=== PATIENT | female | born 1945 | race Caucasian/White ===

== ENCOUNTER 2020-02-19 11:15 | Outpatient (CLI) | payer MEDICARE, OTHER, SELFPAY ==
--- NOTE | 2020-02-19 11:30 | MM_ITS ---
WS: [id number] BILATERAL DIGITAL SCREENING MAMMOGRAPHY WITH CAD CLINICAL INFORMATION: screening HISTORY: Screening mammogram. No current complaints. COMPARISON: TECHNIQUE: Bilateral CC and MLO views. FINDINGS: Scattered fibroglandular densities bilaterally. No suspicious focal mass, asymmetry, calcifications, or architectural distortion. No evidence of malignancy. Vascular calcification. MM/[id number] IMPRESSION: BI-RADS: 2-Benign FOLLOW UP: 1 Year Follow-up Recommend return to annual screening mammography.
== END 2020-02-19 11:16 | disposition home or self-care (01) ==
LOC: RADSHAW 11:21
PROVIDERS: PCP Internal Medicine; Visit Provider Obstetrics & Gynecology
DX: Z12.31 Encounter for screening mammogram for malignant neoplasm of breast (principal)
CPT/HCPCS: 77067

== ENCOUNTER → 2020-02-28 13:26 | Outpatient (BNVA) | payer MEDICARE, OTHER, SELFPAY | PROVIDERS: PCP Internal Medicine; Referring Provider Dermatology; Visit Provider Dermatology | DX: Z12.83 Encounter for screening for malignant neoplasm of skin (principal); H61.009 Unspecified perichondritis of external ear, unspecified ear; L82.0 Inflamed seborrheic keratosis; L81.7 Pigmented purpuric dermatosis; D18.01 Hemangioma of skin and subcutaneous tissue | CPT/HCPCS: 17000; 17003; 99203 ==

== ENCOUNTER 2021-04-15 11:28 | Outpatient (CLI) | payer MEDICARE, SELFPAY ==
--- NOTE | 2021-04-15 11:40 | MM_ITS ---
WS: [id number] BILATERAL DIGITAL SCREENING MAMMOGRAPHY WITH CAD CLINICAL INFORMATION: SCREENING HISTORY: Screening mammogram. No current complaints. COMPARISON: February 19, 2020, December 01, 2018, and TECHNIQUE: Bilateral CC and MLO views. FINDINGS: Scattered fibroglandular densities bilaterally. No suspicious focal mass, asymmetry, calcifications, or architectural distortion. No evidence of malignancy. Punctate and vascular calcifications. MM/[id number] IMPRESSION: BI-RADS: 2-Benign FOLLOW UP: 1 Year Follow-up Recommend return to annual screening mammography.
== END 2021-04-15 11:29 | disposition home or self-care (01) ==
PROVIDERS: PCP Internal Medicine; Visit Provider Internal Medicine
DX: Z12.31 Encounter for screening mammogram for malignant neoplasm of breast (principal)
CPT/HCPCS: 77067

== ENCOUNTER → 2021-06-01 14:07 | Outpatient (BNVA) | payer MEDICARE, SELFPAY | PROVIDERS: PCP Internal Medicine; Visit Provider Nurse Practitioner | DX: R39.9 Unspecified symptoms and signs involving the genitourinary system (principal) | CPT/HCPCS: 81000 ==

== ENCOUNTER → 2021-10-12 13:28 | Outpatient (BNVA) | payer MEDICARE, SELFPAY | PROVIDERS: PCP Internal Medicine; Visit Provider Podiatrist Foot & Ankle Surgery | DX: M76.72 Peroneal tendinitis, left leg (principal); M25.572 Pain in left ankle and joints of left foot; Z87.891 Personal history of nicotine dependence; Z46.89 Encounter for fitting and adjustment of other specified devices | CPT/HCPCS: 20550; 73610; 97760; 99204; J1100; J3301; J3490; L1902 ==

== ENCOUNTER 2021-10-12 15:06 | Outpatient (CLI) | payer MEDICARE, SELFPAY | END 2021-10-12 15:07 | disposition home or self-care (01) | LOC: SPT 15:07 | PROVIDERS: PCP Internal Medicine; Visit Provider Podiatrist Foot & Ankle Surgery | DX: Z46.89 Encounter for fitting and adjustment of other specified devices (principal); M76.72 Peroneal tendinitis, left leg | CPT/HCPCS: 20550; 97760; 99204; L1902 ==

== ENCOUNTER → 2021-11-25 10:49 | Outpatient (BNVA) | payer MEDICARE, SELFPAY | PROVIDERS: PCP Internal Medicine; Visit Provider Podiatrist Foot & Ankle Surgery | DX: M76.72 Peroneal tendinitis, left leg (principal) | CPT/HCPCS: 99213 ==

== ENCOUNTER → 2022-04-19 08:41 | Outpatient (BNVA) | payer MEDICARE, SELFPAY | PROVIDERS: PCP Internal Medicine; Visit Provider Otolaryngology | DX: H61.23 Impacted cerumen, bilateral (principal); H81.09 Meniere's disease, unspecified ear | CPT/HCPCS: 69210; 99213 ==

== ENCOUNTER 2022-04-20 10:02 | Outpatient (CLI) | payer MEDICARE, SELFPAY ==
--- NOTE | 2022-04-20 10:17 | MM_ITS ---
WS: [id number] BILATERAL 3D TOMOSYNTHESIS DIGITAL SCREENING MAMMOGRAPHY WITH CAD CLINICAL INFORMATION: SCREENING HISTORY: Screening mammogram. No current complaints. COMPARISON: 03/2021 And January 30, 2020 TECHNIQUE: Bilateral CC and MLO views. FINDINGS: The breasts are composed of heterogeneous fibroglandular density tissue, which can limit the detectio n of small underlying mass lesions. Stable dense parenchymal tissue upper outer LEFT breast. No suspi cious mass, asymmetry, calcifications, or architectural distortion. No evidence of malignancy. Puncta te and Vascular calcification MM/[id number] IMPRESSION: BI-RADS: 2-Benign FOLLOW UP: 1 Year Follow-up Recommend return to annual screening mammography.
== END 2022-04-20 10:03 | disposition home or self-care (01) ==
LOC: RAD 10:06
PROVIDERS: PCP Internal Medicine; Visit Provider Obstetrics & Gynecology
DX: Z12.31 Encounter for screening mammogram for malignant neoplasm of breast (principal)
CPT/HCPCS: 77063; 77067

== ENCOUNTER 2022-06-07 08:24 | Emergency (ER) | payer MEDICARE, SELFPAY ==
[2022-06-07 08:31] VITALS: BP 163/94; PULSE 84; RESP 16; TEMP 36.7; O2SAT 94; BMI 30.2
--- NOTE | 2022-06-07 08:50 | ECG_ITS ---
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 Measurements Intervals [place] Rate: 90 P: 40 TX: 150 QRS: -46 QRSD: 81 T: 31 QT: 343 QTc: 420 Interpretive Statements SINUS RHYTHM PATTERN CONSISTENT WITH PULMONARY DISEASE LEFT ANTERIOR FASCICULAR BLOCK [QRS AXIS <= -45, QR IN I, RS IN II] Compared to ECG 08/11/2015 19:03:23 Left anterior fascicular block now present Sinus bradycardia no longer present Left-axis deviation no longer present Electronically Signed On 06-07-2022 14:59:20 CAN CUTTER by Aquilino Egan M.D. [id number]
[2022-06-07 09:02] LABS: Basophils % 0.3 %; Eosinophils # 0.1 10^3/uL (0.0-0.8); Eosinophils % 1.1 %; Hematocrit 39.8 % (37.0-47.0); Hemoglobin 12.8 g/dL (11.5-15.3); Lymphocytes # 1.9 10^3/uL (0.8-4.8); Lymphocytes % 30.4 %; Mean Corpuscular HGB Conc 32.2 g/dL (30.0-36.0); Mean Corpuscular Hemoglobin 28.6 pg (28.0-34.0); Mean Corpuscular Volume 88.8 fl (81-99); Mean Platelet Volume 9.2 fL (7.4-10.4); Monocytes % 15.3 %; Neutrophils # 3.34 10^3/uL (1.8-7.7); Neutrophils % 52.6 %; Nucleated Red Blood Cells % 0 %; Platelet Count 289 10^3/cmm (130-400); Red Blood Count 4.48 10^6/uL (4.1-5.3); Red Cell Distribution Width 11.5 % (12.1-15.1); White Blood Count 6.4 10^3/uL (4.0-10.0)
--- NOTE | 2022-06-07 09:03 | ED_ITS ---
HPI - Weakness General: Chief complaint: Weakness Stated complaint: weakness Time Seen by Provider: 06/07/22 08:37 Source: patient Mode of arrival: ambulatory History of Present Illness: 77-year-old female presents emergency room with complaint of weakness. Symptoms began 3 weeks ago she has been to the primary care doctor's office multiple times in that timeframe she is also had these intermittent very brief headaches lasting few seconds at a time. She was found to be hyper thyroid with a low TSH patient handcarried copies of her labs from [facility]. Today the rest of her laboratory tests were unremarkable. She is has a history of hypertension. She is on losartan for high blood pressure which she takes at night before she goes to bed. She took her dose last night she is also on estradiol. She had no focal neurologic deficits. No hematochezia melena hematemesis coffee-ground emesis no dysuria u rgency or frequency no fevers cough sweats chills or shortness of breath her main complaint is just the weakness. Her primary care doctor has referred her to endocrinology as well as to ENT. Ultrasound of the thyroid showed questionable nodule, ultrasound report recommended consideration of biopsy or fine-needle aspiration to rule out cancer. They had also set up for an MRI of the head because of the intermittent headaches these are brief lasting just a few seconds by her description usually on the right side. Finally they have referred her to endocrinology she has an appointment on July 05. Complaint: generalized weakness Onset (ago): week(s) (3) Duration: constant Location: generalized Relieving factors: none Exacerbating factors: none Associated symptoms: Reports decreased appetite, headache(s) and nausea; Denies chest pain, chills, confusion, melena, diaphoresis, dysuria, easy bruising, fever(s), myalgias, rash, short of breath, syncope or vomiting Review of Systems Const: Reports: fatigue and malaise; Denies: fever(s), chills or diaphoresis ENMT: Denies: throat pain, ear or mastoid pain, nasal discharge or nasal congestion Card: Reports: palpitations; Denies: chest pain, irregular heart rhythm, edema, swelling of feet/ankles or syncope Resp: Denies: dyspnea, productive cough or non-productive cough GI: Reports: nausea; Denies: abdominal pain, vomiting, diarrhea, constipation or melena : Denies: flank pain, difficulty voiding, dysuria, urinary frequency or urinary urgency Musc: Denies: neck pain or back pain Skin/Breast: Denies: rash or pruritus Neuro: Reports: headache(s); Denies: confusion Bryon/Lymph: Denies: easy bruising PFSH ED PFSH: Medical History Hypertension Diagnosed in her 50s and symptoms are controlled with medication managed by her primary care provider Dr. Bourgeois. No pertinent past medical history Denies diabetes, asthma, hypertension, seizures, DVT/PE PCP: Dr. Bourgeois Surgical History S/P hysterectomy Total abdominal hysterectomy and unilateral salpingo-oophorectomy in 1981 for heavy bleeding. She does not remember which ovary was removed. States that she was told is no cancer or precancer -Done via a vertical infraumbilical midline incision Family History Mother Hypertension Denies family history of Colon cancer Ovarian cancer Diabetes Heart disease Hyperlipidemia Breast cancer Uterine cancer Thyroid condition Stroke Social History Smoking and tobacco status: former smoker Physical Exam Const: GENERAL APPEARANCE: cooperative and comfortable ORIENTATION/CONSCIOUSNESS: Yes awake, Yes oriented to person, Yes oriented to place and Yes oriented to time HENMT: COMMON NORMALS: normocephalic, atraumatic, hearing grossly normal bilaterally, external ears normal, EAC's normal, TM's normal bilaterally, Normal nasal mucous membranes and turbinates present, moist oral mucous membranes and oropharynx normal HEAD & SCALP: normocephalic and atraumatic NOSE: Normal nasal mucous membranes and turbinates present EXTERNAL EAR: Yes external ears normal EXTERNAL AUDITORY CANAL: EAC's normal TYMPANIC MEMBRANE: TM's normal bilaterally Eye: COMMON NORMALS: Equal, round and reactive pupils present, EOMs intact bilaterally, conjunctivae normal and no scleral icterus CONJUNCTIVA: Yes conjunctivae normal PUPIL: Yes Equal, round and reactive pupils present Neck/C-Spine: COMMON NORMALS: full ROM, no lymphadenopathy, supple and no JVD Lymph: LYMPHATIC: no lymphadenopathy noted and no lymphedema noted Resp: COMMON NORMALS: normal respiratory effort, No retractions, No use of accessory muscles and clear to auscultation bilaterally AUSCULTATION: clear to auscultation bilaterally Cardio: COMMON NORMALS: no JVD, regular rate, regular rhythm and No murmurs present (Cardio) RATE: regular rate RHYTHM: regular rhythm GI: COMMON NORMALS: Soft to palpation and No hepatosplenomegaly present AUSCULTATION: Yes normoactive bowel sounds PALPATION: Yes Soft to palpation, No Tenderness to palpation present (GI), No Guarding due to palpation present (GI) and Yes No hepatosplenomegaly present Extremity: COMMON NORMALS: normal to inspection, capillary refill normal, no clubbing, cyanosis or edema, no calf tenderness and no pedal edema Neuro: SENSORIUM/ORIENTATION: Yes oriented to person, Yes oriented to place and Yes oriented to time Skin: COMMON NORMALS: no rashes or lesions noted GENERAL SKIN EXAM: no rashes or lesions noted Course Vital Signs: Vital signs: Vital Signs Temperature 98.1 F 06/07/22 08:31 Pulse Rate 82 06/07/22 10:13 Respiratory Rate 18 06/07/22 10:13 Blood Pressure 147/90 06/07/22 10:13 Pulse Oximetry 95 06/07/22 10:13 Oxygen Delivery Me thod 06/07/22 08:31 MDM - Weakness Medical Decision Making Reviewed laboratory findings with the patient EKG is normal chest x-ray unremarkable her laboratory studies cleared for the procedure with hyperthyroid we did check a free T4 that was not in her lab work from [facility] but her TSH was low. She does not really have any other manifesting symptoms at this point in recommend that she wait until she sees endocrinology. She does have a mild relatively asymptomatic cystitis she says she has had cystitis in the past nothing recently has not been on any antibiotics in the last month. We will start her on Macrobid. Beyond that she is neither anemic nor having any electrolyte imbalances. She is mildly hypertensive but that improved while the work-up was being completed. At this point recommend continuing her current medication treating the cystitis and follow-up with a work-up her primary care provider has outlined. Return if there is significant change in her symptoms. Discussed with her that often the emergency room we do not always find a precipitating cause for her symptoms but that this work-up verifies there is no emergent condition present at the time she is seen. Medical Records I reviewed the patient's medical records. Lab Data I reviewed the patient's lab results. 06/07/22 08:57 06/07/22 08:57 Laboratory Results WBC 6.4 10^3/uL (4.0-10.0) 06/07/22 08:57 RBC 4.48 10^6/uL (4.1-5.3) 06/07/22 08:57 Hgb 12.8 g/dL (11.5-15.3) 06/07/22 08:57 Hct 39.8 % (37.0-47.0) 06/07/22 08:57 MCV 88.8 fl (81-99) 06/07/22 08:57 MCH 28.6 pg (28.0-34.0) 06/07/22 08:57 MCHC 32.2 g/dL (30.0-36.0) 06/07/22 08:57 RDW 11.5 % (12.1-15.1) L 06/07/22 08:57 Plt Count 289 10^3/cmm (130-400) 06/07/22 08:57 MPV 9.2 fL (7.4-10.4) 06/07/22 08:57 Neut % (Auto) 52.6 % 06/07/22 08:57 Lymph % (Auto) 30.4 % 06/07/22 08:57 Custer % (Auto) 15.3 % 06/07/22 08:57 Eos % (Auto) 1.1 % 06/07/22 08:57 Baso % (Auto) 0.3 % 06/07/22 08:57 Neut # (Auto) 3.34 10^3/uL (1.8-7.7) 06/07/22 08:57 Lymph # (Auto) 1.9 10^3/uL (0.8-4.8) 06/07/22 08:57 Custer # (Auto) 1.0 10^3/uL (0.2-0.9) H 06/07/22 08:57 Eos # (Auto) 0.1 10^3/uL (0.0-0.8) 06/07/22 08:57 Baso # (Auto) 0.0 10^3/uL (0.0-0.1) 06/07/22 08:57 Nucleated RBC % (auto) 0 % 06/07/22 08:57 Nucleated RBCs # 0.0 /100WBC 06/07/22 08:57 Sodium 135 mmol/L (136-145) L 06/07/22 08:57 Potassium 4.5 mmol/L (3.5-5.1) 06/07/22 08:57 Chloride 102 mmol/L (98-107) 06/07/22 08:57 Carbon Dioxide 24 mmol/L (22-29) 06/07/22 08:57 Anion Gap 13.5 (5-19) 06/07/22 08:57 BUN 16 mg/dL (8-23) 06/07/22 08:57 Creatinine 0.6 mg/dL (0.5-0.9) 06/07/22 08:57 GFR Calculation Not Reportable 06/07/22 08:57 Glucose 106 mg/dL (65-115) 06/07/22 08:57 Calculated Osmolality 282 mOsm/kg (285-295) L 06/07/22 08:57 Calcium 9.7 mg/dL (8.5-10.5) 06/07/22 08:57 Total Bilirubin 0.2 mg/dL (0.15-1.2) 06/07/22 08:57 AST 15 U/L (0-32) 06/07/22 08:57 ALT 20 U/L (0-33) 06/07/22 08:57 Alkaline Phosphatase 124 U/L (35-105) H 06/07/22 08:57 Total Protein 7.6 g/dL (6.6-8.7) 06/07/22 08:57 Albumin 3.8 g/dL (3.5-5.2) 06/07/22 08:57 Globulin 3.8 g/dL (1.3-4.6) 06/07/22 08:57 Free T4 3.31 ng/dL (0.82-1.77) H 06/07/22 09:10 Urine Color Yellow (Yellow) 06/07/22 09:15 Urine Appearance Clear (CLEAR) 06/07/22 09:15 Urine pH 6.5 (5-7) 06/07/22 09:15 Ur Specific [place] 1.010 (1.005-1.030) 06/07/22 09:15 Urine Protein Neg (Negative) 06/07/22 09:15 Urine Glucose (UA) Norm (Normal) 06/07/22 09:15 Urine Ketones Negative (Negative) 06/07/22 09:15 Urine Blood Neg (Negative) 06/07/22 09:15 Urine Nitrate Negative (Negative) 06/07/22 09:15 Urine Bilirubin Neg (Negative) 06/07/22 09:15 Urine Urobilinogen Norm mg/dL (Negative) 06/07/22 09:15 Ur Leukocyte Esterase 2+ (Negative) H 06/07/22 09:15 Urine RBC 0-4 /hpf (0-2) H 06/07/22 09:15 Urine WBC 25-40 /hpf (0-5) H 06/07/22 09:15 Ur Squamous Epith Cells 0-4 /hpf (0-5) H 06/07/22 09:15 Amorphous Sediment Not Reportable 06/07/22 09:15 Urine Bacteria 1+ /hpf (NONE) H 06/07/22 09:15 Discharge Plan Discharge Patient Disposition: Home Clinical Impression: Cystitis, Hyperthyroidism Condition: Stable Prescriptions: New Macrobid 100 mg capsule 100 mg PO BID 7 Days Qty: 14 0RF Rx Instructions: must administer with a meal/food No Action polaprezinc (zinc carnosine) PO estradiol 0.5 mg tablet 0.5 mg PO DAILY Qty: 90 3RF aspirin 81 mg tablet,delayed release (DR/EC) 81 mg PO DAILY cholecalciferol (vitamin D3) 50 mcg (2,000 unit) tablet 50 mcg PO DAILY citalopram 10 mg tablet 10 mg PO DAILY tretinoin 0.1 % cream 1 applic topical Q7D Qty: 20 0RF Rx Instructions: Apply peasized amount to an entire cleanand dry face. triamcinolone acetonide 0.1 % ointment 1 applic topical BID Qty: 30 0RF Rx Instructions: Apply to chest losartan 50 mg tablet 50 mg PO DAILY Qty: 90 0RF Rx Instructions: needs to see PCP before more refills Discharge Orders: Discharge ED (Routine); Ordered 06/07/22 Ordered By: Jas Underwood Referrals: Harjinder Sam MD [Primary Care Provider] - Discharge Diet: Usual diet Discharge Activity: Increase activity as tolerated Patient Instructions: Opioid Safety, Pain Management Activity Restrictions/Additional Instructions: You were seen today for weakness. The free T4 is elevated consistent with hyperthyroidism. Recommend you keep your appointment with endocrinology. Also recommend to keep your appointment for the MRI that Dr. Weaver scheduled for your headaches. You did have a mild bladder infection you were given a prescrip tion for Macrobid to take 1 twice a day for 7 days. Coding Level of Care Code ED Children Teacher for [place] Fwd Exam Comprehensive NIH stroke score NIHSS Level Of Consciousness - 1a: 0 Level Of Consciousness Questions - 1b: Both Correct Level Of Consciousness Commands - 1c: Both Correct Best Gaze - 2: Normal Visual Laird - 3: No Visual Loss Facial Palsy - 4: Normal Motor Arm Right - 5: No Drift Motor Arm Left - 5: No Drift Motor Leg Right - 6: No Drift Motor Leg Left - 6: No Drift Limb Ataxia - 7: Absent Sensory - 8: Normal Best Language - 9: No Aphasia Dysarthia - 10: Normal Extinction And Inattention - 11: 0 Score Total Score: 0
[2022-06-07 09:05] VITALS: BP 171/104; PULSE 83; RESP 21; O2SAT 95
--- NOTE | 2022-06-07 09:20 | PC.NURSE ---
PT PLACED ON CONTINUOUS NIBP, SP2, AND CM
[2022-06-07 09:25] LABS: Alanine Aminotransferase 20 U/L (0-33); Albumin Level 3.8 g/dL (3.5-5.2); Alkaline Phosphatase 124 U/L (35-105); Anion Gap 13.5 (5-19); Aspartate Amino Transferase 15 U/L (0-32); Blood Urea Nitrogen 16 mg/dL (8-23); Calcium 9.7 mg/dL (8.5-10.5); Carbon Dioxide 24 mmol/L (22-29); Chloride 102 mmol/L (98-107); Globulin 3.8 g/dL (1.3-4.6); Glucose 106 mg/dL (65-115); Osmolality Calculated 282 mOsm/kg (285-295); Potassium 4.5 mmol/L (3.5-5.1); Sodium 135 mmol/L (136-145); Total Bilirubin 0.2 mg/dL (0.15-1.2); Total Protein 7.6 g/dL (6.6-8.7)
[2022-06-07 09:30] VITALS: BP 147/90; PULSE 73; RESP 20; O2SAT 95
[2022-06-07 09:36] LABS: Add Urine Microscopic? YES; Bilirubin Urine Neg (Negative); Blood Urine Neg (Negative); Glucose Urine UA Norm (Normal); Ketones Urine Negative (Negative); Leukocyte Esterase Urine 2+ (Negative); Nitrate Urine Negative (Negative); Protein Urine Neg (Negative); RBC Urine 0-4 /hpf (0-2); Squamous Epithelial Cell Urine 0-4 /hpf (0-5); Urine Appearance Clear (CLEAR); Urine Color Yellow (Yellow); Urobilinogen Urine Norm (Negative); WBC Urine 25-40 /hpf (0-5); pH Urine 6.5 (5-7)
[2022-06-07 09:37] LABS: Add Urine Culture? Yes; Bacteria Urine 1+ /hpf
[2022-06-07 09:57] LABS: Free T4 Free Thyroxine 3.31 ng/dL (0.82-1.77)
[2022-06-07 10:13] VITALS: BP 147/90; PULSE 82; RESP 18; O2SAT 95
== END 2022-06-07 10:13 | disposition home or self-care (01) ==
PROVIDERS: Emergency Provider Family Medicine; PCP Hospitalist
DX: N30.90 Cystitis, unspecified without hematuria (principal); E05.90 Thyrotoxicosis, unspecified without thyrotoxic crisis or storm; Z79.82 Long term (current) use of aspirin; Z87.891 Personal history of nicotine dependence; I10 Essential (primary) hypertension
CPT/HCPCS: 80053; 81001; 84439; 85025; 87086; 93005; 99284

== ENCOUNTER → 2022-06-09 09:24 | Outpatient (BNVA) | payer MEDICARE, SELFPAY | PROVIDERS: PCP Internal Medicine; Visit Provider Otolaryngology | DX: E04.2 Nontoxic multinodular goiter (principal); E05.90 Thyrotoxicosis, unspecified without thyrotoxic crisis or storm | CPT/HCPCS: 99213 ==

== ENCOUNTER → 2022-06-15 08:17 | Outpatient (BNVA) | payer MEDICARE, SELFPAY | PROVIDERS: PCP Internal Medicine; Visit Provider Internal Medicine | DX: E04.2 Nontoxic multinodular goiter (principal); E05.90 Thyrotoxicosis, unspecified without thyrotoxic crisis or storm | CPT/HCPCS: 99204 ==

== ENCOUNTER 2022-06-29 13:59 | Outpatient (CLI) | payer MEDICARE, SELFPAY ==
--- NOTE | 2022-06-29 14:18 | MR_ITS ---
WS: [id number] MRI HEAD WITHOUT CONTRAST TECHNIQUE: Sagittal T1, T2 axial, T2 axial FLAIR, axial and coronal T1 images, axial susceptibility w eighted imaging, axial diffusion weighted images, and coronal T2 images were obtained. CLINICAL INFORMATION: NEW ONSET HEADACHE COMPARISON: CT 2016 FINDINGS: No evidence of restricted diffusion to suggest acute ischemia. Ventricular system and basal cisterns are patent. Moderate small vessel changes with moderate parenchymal volume loss. Normal posterior fos sa. Normal vascular flow voids at the skull base. No extra-axial fluid collections. No evidence of mass or mass effect. Paranasal sinuses and mastoid air cells are well aerated. No hemo siderin on the susceptibly weighted images. Moderate symmetric atrophy temporal lobes and hippocampal formations. Normal optic chiasm and pituitary infundibulum. MR/MR head wo con* [id number] IMPRESSION: 1. No evidence of restricted diffusion to suggest acute ischemia. 2. Moderate small vessel changes with moderate parenchymal volume loss. Small vessel changes in the bruno. 3. Moderate symmetric atrophy temporal lobes and hippocampal formations. 4. No hemosiderin on susceptibly weighted images. 5. No other suspicious findings.
== END 2022-06-29 14:00 | disposition home or self-care (01) ==
PROVIDERS: PCP Internal Medicine; Visit Provider Internal Medicine
DX: R51.9 Headache, unspecified (principal); G31.9 Degenerative disease of nervous system, unspecified
CPT/HCPCS: 70551

== ENCOUNTER 2022-08-02 10:23 | Outpatient (CLI) | payer MEDICARE, SELFPAY ==
[2022-08-02 11:50] LABS: Free T4 Free Thyroxine 0.24 ng/dL (0.82-1.77); Thyroid Stimulating Hormone 44.51 uIU/mL (0.27-4.20)
[2022-08-03 08:09] LABS: T3 Total 56 ng/dL (76-181)
[2022-08-03 15:40] LABS: Thyroid Peroxidase Antobodies 2 IU/mL (<9)
[2022-08-03 15:55] LABS: Thyroglobulin AB <1 IU/mL (< or = 1)
[2022-08-06 04:14] LABS: TSH Receptor Binding Antibody 1.01 IU/L (< OR = 2.00)
== END 2022-08-02 10:24 | disposition home or self-care (01) ==
LOC: LAB 10:27
PROVIDERS: PCP Internal Medicine; Visit Provider Internal Medicine
DX: E04.2 Nontoxic multinodular goiter (principal); E05.90 Thyrotoxicosis, unspecified without thyrotoxic crisis or storm
CPT/HCPCS: 36415; 83516; 84439; 84443; 84480; 86376; 86800

== ENCOUNTER 2022-08-06 11:04 | Outpatient (CLI) | payer MEDICARE, SELFPAY ==
[2022-08-06 13:27] LABS: Free T4 Free Thyroxine 0.43 ng/dL (0.82-1.77)
== END 2022-08-06 11:05 | disposition home or self-care (01) ==
LOC: LAB 11:08
PROVIDERS: PCP Internal Medicine; Visit Provider Internal Medicine
DX: E05.90 Thyrotoxicosis, unspecified without thyrotoxic crisis or storm (principal)
CPT/HCPCS: 84439

== ENCOUNTER → 2022-08-10 10:58 | Outpatient (BNVA) | payer MEDICARE, SELFPAY | PROVIDERS: PCP Internal Medicine; Visit Provider Internal Medicine | DX: E04.2 Nontoxic multinodular goiter (principal); E05.90 Thyrotoxicosis, unspecified without thyrotoxic crisis or storm | CPT/HCPCS: 99214 ==

== ENCOUNTER 2022-08-18 12:11 | Outpatient (CLI) | payer MEDICARE, SELFPAY ==
[2022-08-18 13:18] LABS: Free T4 Free Thyroxine 0.73 ng/dL (0.82-1.77)
== END 2022-08-18 12:12 | disposition home or self-care (01) ==
LOC: LAB 12:14
PROVIDERS: PCP Internal Medicine; Visit Provider Internal Medicine
DX: E04.2 Nontoxic multinodular goiter (principal)
CPT/HCPCS: 36415; 84439

== ENCOUNTER 2022-09-28 14:12 | Outpatient (CLI) | payer MEDICARE, SELFPAY ==
[2022-09-28 15:19] LABS: Free T4 Free Thyroxine 0.85 ng/dL (0.82-1.77); Thyroid Stimulating Hormone 4.11 uIU/mL (0.27-4.20)
[2022-09-29 11:44] LABS: T3 Total 104 ng/dL (76-181)
== END 2022-09-28 14:13 | disposition home or self-care (01) ==
LOC: LAB 14:21
PROVIDERS: PCP Internal Medicine; Visit Provider Internal Medicine
DX: E04.2 Nontoxic multinodular goiter (principal); E05.90 Thyrotoxicosis, unspecified without thyrotoxic crisis or storm
CPT/HCPCS: 36415; 84439; 84443; 84480

== ENCOUNTER → 2022-11-16 13:31 | Outpatient (BNVA) | payer MEDICARE, SELFPAY | PROVIDERS: PCP Internal Medicine; Visit Provider Internal Medicine | DX: E04.2 Nontoxic multinodular goiter (principal); E05.90 Thyrotoxicosis, unspecified without thyrotoxic crisis or storm | CPT/HCPCS: 99214 ==

== ENCOUNTER 2022-12-17 14:01 | Outpatient (CLI) | payer MEDICARE, SELFPAY ==
--- NOTE | 2022-12-17 14:15 | US_ITS ---
WS: [id number] THYROID ULTRASOUND HISTORY: nodules COMPARISON: 05/25/2022 Right lobe: 0.9 cm x 1.2 cm x 2.9 cm (w x ap x l). Volume: 1.6 cm3. Small caliber nodular and echogenic thyroid. Thyroid is smaller than on the prior examination. No new or enlarging nodule. Left lobe: 1.2 cm x 1.2 cm x 3.4 cm (w x ap x l). Volume: 2.5 cm3. Small caliber thyroid. Lobulated gland. Gland has significantly decreased in size since the prior yousif dy. Decreased vascularity. Tiny hyperechoic nodule in the mid gland with a maximum diameter 7 mm. Isthmus: 0.3 cm. US/US thyroid [id number] IMPRESSION: Very small shrunken nodular thyroid. Significant decrease in size since the maryam or study.
== END 2022-12-17 14:02 | disposition home or self-care (01) ==
PROVIDERS: PCP Internal Medicine; Visit Provider Internal Medicine
DX: E04.2 Nontoxic multinodular goiter (principal)
CPT/HCPCS: 76536; 99214

== ENCOUNTER 2023-05-23 14:12 | Outpatient (CLI) | payer MEDICARE, SELFPAY ==
--- NOTE | 2023-05-23 14:18 | MM_ITS ---
WS: [id number] BILATERAL 3D TOMOSYNTHESIS DIGITAL SCREENING MAMMOGRAPHY WITH CAD CLINICAL INFORMATION: SCREENING HISTORY: Screening mammogram. No current complaints. COMPARISON: 2021 TECHNIQUE: Bilateral CC and MLO views. FINDINGS: Scattered fibroglandular densities bilaterally. No suspicious focal mass, asymmetry, calcifications, or architectural distortion. No evidence of malignancy. Vascular calcifications. A few incidental pun ctate calcifications. IMPRESSION: MM/[place] [id number] BI-RADS: 2-Benign FOLLOW UP: 1 Year Follow-up Recommend return to annual screening mammography.
== END 2023-05-23 14:13 | disposition home or self-care (01) ==
LOC: RAD 14:13
PROVIDERS: PCP Internal Medicine; Visit Provider Internal Medicine
DX: Z12.31 Encounter for screening mammogram for malignant neoplasm of breast (principal)
CPT/HCPCS: 77063; 77067

== ENCOUNTER → 2023-05-30 10:50 | Outpatient (BNVA) | payer MEDICARE, SELFPAY | PROVIDERS: PCP Family Medicine; Visit Provider Family Medicine | DX: I10 Essential (primary) hypertension (principal) | CPT/HCPCS: 80053; 80061; 85025 ==

== ENCOUNTER → 2023-06-30 16:20 | Outpatient (BNVA) | payer MEDICARE, SELFPAY | PROVIDERS: PCP Family Medicine; Visit Provider Registered Nurse Neonatal Intensive Care | DX: R39.9 Unspecified symptoms and signs involving the genitourinary system (principal); R30.0 Dysuria; N39.0 Urinary tract infection, site not specified | CPT/HCPCS: 81000; 87086; 87491; 87591 ==

== ENCOUNTER → 2023-07-26 11:42 | Outpatient (BNVA) | payer MEDICARE, SELFPAY | PROVIDERS: PCP Family Medicine | DX: E05.90 Thyrotoxicosis, unspecified without thyrotoxic crisis or storm (principal); E04.2 Nontoxic multinodular goiter | CPT/HCPCS: 84439; 84443; 84480 ==

== ENCOUNTER → 2023-08-30 18:39 | Outpatient (BNVA) | payer MEDICARE, SELFPAY | PROVIDERS: PCP Family Medicine; Visit Provider Registered Nurse Neonatal Intensive Care | DX: R39.9 Unspecified symptoms and signs involving the genitourinary system (principal) | CPT/HCPCS: 81000; 87077; 87086; 87184 ==

== ENCOUNTER 2023-10-31 14:14 | Outpatient (CLI) | payer MEDICARE, SELFPAY ==
[2023-10-31 14:52] LABS: Free T4 Free Thyroxine 0.85 ng/dL (0.82-1.77); Thyroid Stimulating Hormone 4.23 uIU/mL (0.27-4.20)
[2023-11-01 06:54] LABS: T3 Total 94 ng/dL (76-181)
== END 2023-10-31 14:15 | disposition home or self-care (01) ==
LOC: LAB 14:16
PROVIDERS: PCP Family Medicine; Visit Provider Internal Medicine
DX: E05.90 Thyrotoxicosis, unspecified without thyrotoxic crisis or storm (principal)
CPT/HCPCS: 36415; 84439; 84443; 84480

== ENCOUNTER 2023-11-28 15:21 | Outpatient (CLI) | payer MEDICARE, SELFPAY ==
[2023-11-28 16:18] LABS: Free T4 Free Thyroxine 0.83 ng/dL (0.82-1.77); Thyroid Stimulating Hormone 3.89 uIU/mL (0.27-4.20)
[2023-11-29 11:49] LABS: T3 Total 94 ng/dL (76-181)
== END 2023-11-28 15:22 | disposition home or self-care (01) ==
LOC: LAB 15:24
PROVIDERS: PCP Family Medicine; Visit Provider Internal Medicine
DX: E05.90 Thyrotoxicosis, unspecified without thyrotoxic crisis or storm (principal)
CPT/HCPCS: 36415; 84439; 84443; 84480

== ENCOUNTER → 2023-11-29 10:49 | Outpatient (BNVA) | payer MEDICARE, SELFPAY | PROVIDERS: PCP Family Medicine; Visit Provider Internal Medicine | DX: E55.9 Vitamin D deficiency, unspecified (principal); E04.2 Nontoxic multinodular goiter; E05.90 Thyrotoxicosis, unspecified without thyrotoxic crisis or storm; R06.02 Shortness of breath; E61.1 Iron deficiency; E11.9 Type 2 diabetes mellitus without complications | CPT/HCPCS: 36415; 80053; 80061; 82044; 82306; 82607; 83036; 83540; 83735; 85025; 99214 ==

== ENCOUNTER → 2023-12-08 14:17 | Outpatient (BNVA) | payer MEDICARE, SELFPAY | PROVIDERS: PCP Family Medicine; Visit Provider Podiatrist Foot & Ankle Surgery | DX: M79.671 Pain in right foot (principal); M79.674 Pain in right toe(s); L60.3 Nail dystrophy; M72.2 Plantar fascial fibromatosis | CPT/HCPCS: 11750; 73630; 99203; A6219 ==

== ENCOUNTER 2023-12-15 09:52 | Outpatient (CLI) | payer MEDICARE, SELFPAY ==
--- NOTE | 2023-12-15 10:00 | US_ITS ---
WS: [id number] ULTRASOUND THYROID TECHNIQUE: Ultrasound of the thyroid. CLINICAL INFORMATION: multiple thyroid nodule COMPARISON: 12/17/2022 and 05/25/2022 FINDINGS: Thyroid: Nodular heterogeneous small volume thyroid with coarse echogenicity similar to previous. RIGHT lobe volume is similar to previous. LEFT lobe volume has decreased slightly. Normal vascularity in both lobes. No dominant or suspicious nodules visualized today. Previously desc ribed echogenic nodule LEFT thyroid is not visualized today. Right thyroid lobe: 2.8 cm x 1.2 cm x 1.2 cm RIGHT thyroid volume 1.96 cc, previously this measured 1.6 cc Left thyroid lobe: 3.3 cm x 1.1 cm x 1.2 cm. LEFT thyroid volume 2.1 cc, previously this measured 2.5 cc Isthmus: 4 mm. Cervical lymphadenopathy: None. US/US thyroid [id number] IMPRESSION: 1. No suspicious or dominant thyroid nodules visualized today. 2. Somewhat atrophic nodular and heterogeneous thyroid gland similar to previo us. Overall volume is decreased slightly compared to previous but not significa ntly changed 3. No other suspicious findings.
--- NOTE | 2023-12-15 10:30 | USCV_ITS ---
Oriana Dillard Age: 78 Gender: F : 1945 Exam Date: 12/15/2023 10:10 Ordering Phys: Coty Hoffman MD Technologist: CLAUDIA Exam Location: [facility] [place] Indication: SHORTNESS OF BREATH, FATIGUE BP: 160 / 72 HR: 55 Rhythm: Sinus Technical Quality: Adequate MEASUREMENTS (Male / Female) Normal Values 2D ECHO LV Diastolic Diameter PLAX 5.0 cm 4.2 - 5.9 / 3.9 - 5.3 cm IVS Diastolic Thickness 1.5 cm 0.6 - 1.0 / 0.6 - 0.9 cm IVS Systolic Thickness 2.2 cm LVPW Diastolic Thickness 1.9 cm 0.6 - 1.0 / 0.6 - 0.9 cm LVPW Systolic Thickness 2.9 cm LVOT Diameter 2.0 cm LV Ejection Fraction 2D Teich 63.5 % LV Ejection Fraction MOD 2C 68.1 % LV Ejection Fraction 2C AL 67.9 % LA Diameter 3.4 cm RA Systolic Volume 4C AL 22.2 ml RA Systolic Volume 4C MOD 20.2 ml LA Sys Volume AL 42.5 cm cubed LA Sys Volume Index AL 21.0 cm cubed/m squared Aorta at Sinotubular Diameter 2.2 cm IVC Diameter 1.4 cm M-MODE LA Ao Ratio MM 1.0 AV Cusp Separation MM 1.9 cm DOPPLER AV Peak Velocity 133.0 cm/s LVOT Peak Velocity 115.0 cm/s AV Area Cont Eq vti 2.8 cm squared AV Area Cont Eq pk 2.8 cm squared MV Peak Velocity 94.0 cm/s MV Area PHT 4.9 cm squared Mitral E to A Ratio 1.8 TR Peak Velocity 158.0 cm/s TR Peak Gradient 10.0 mmHg TR Mean Velocity 117.0 cm/s TR Mean Gradient 6.1 mmHg TR Velocity Time Integral 55.8 cm TV Peak E Velocity 48.0 cm/s Right Atrial Pressure 3.0 mmHg Pulmonary Artery Systolic Pressu 13.0 mmHg PV Peak Velocity 83.0 cm/s RV Ejection Time 0.3 s FINDINGS Left Ventricle Normal left ventricular size, systolic function and wall thickness, with no regional wall motion abnormalities. Left ventricular ejection fraction is normal 60%. Grade II/IV diastolic dysfunction, moderately elevated filling pressures. Right Ventricle The right ventricle is normal in size and function. Right Atrium The right atrium is normal in size. Left Atrium Mildly increased left atrial size. Mitral Valve Structurally normal mitral valve without significant stenosis or prolapse. There is trace mitral regurgitation. Aortic Valve Structurally normal aortic valve without significant sclerosis or stenosis. There is trace aortic regurgitation. Tricuspid Valve Structurally normal tricuspid valve without significant stenosis or regurgitation. Pulmonary artery systolic pressure is normal. Pulmonic Valve Structurally normal pulmonic valve without significant stenosis. There is no pulmonic regurgitation. Pericardium Normal pericardium without effusion. Aorta Normal ascending aorta dimension. IVC The inferior vena cava appears normal. CONCLUSIONS 1-Normal left ventricular size, systolic function and wall thickness, with no regional wall motion abnormalities. Left ventricular ejection fraction is normal 60%. Grade II/IV diastolic dysfunction, moderately elevated filling pressures. 2-There is no pericardial effusion. 3-No significant valve abnormalities. 4-Right atrial pressure is around 5 mm of mercury. Chelsea Burdick MD (Electronically Signed) Final Date: 15 December 2023 20:30 S
== END 2023-12-15 09:53 | disposition home or self-care (01) ==
PROVIDERS: PCP Family Medicine; Visit Provider Internal Medicine
DX: R06.02 Shortness of breath (principal); E04.2 Nontoxic multinodular goiter; E05.90 Thyrotoxicosis, unspecified without thyrotoxic crisis or storm
CPT/HCPCS: 76536; 93306

== ENCOUNTER → 2023-12-22 14:37 | Outpatient (BNVA) | payer MEDICARE, SELFPAY | PROVIDERS: PCP Family Medicine; Visit Provider Podiatrist Foot & Ankle Surgery | DX: L60.3 Nail dystrophy (principal); M72.2 Plantar fascial fibromatosis | CPT/HCPCS: 99213 ==

== ENCOUNTER → 2024-01-19 10:26 | Outpatient (BNVA) | payer MEDICARE, SELFPAY | PROVIDERS: PCP Family Medicine; Visit Provider Family Medicine Adult Medicine | DX: H81.09 Meniere's disease, unspecified ear (principal); M79.604 Pain in right leg; M79.605 Pain in left leg; R53.83 Other fatigue; R53.1 Weakness; M72.2 Plantar fascial fibromatosis; R06.09 Other forms of dyspnea; I10 Essential (primary) hypertension; R63.5 Abnormal weight gain | CPT/HCPCS: 85651; 86038; 86141; 86200; 86431 ==

== ENCOUNTER → 2024-03-30 09:36 | Outpatient (BNVA) | payer MEDICARE, SELFPAY | PROVIDERS: PCP Family Medicine; Visit Provider Nurse Practitioner Family | DX: L82.0 Inflamed seborrheic keratosis (principal); H61.031 Chondritis of right external ear; L82.1 Other seborrheic keratosis; L57.8 Other skin changes due to chronic exposure to nonionizing radiation; D22.5 Melanocytic nevi of trunk | CPT/HCPCS: 17110; 99203 ==

== ENCOUNTER 2024-05-28 15:23 | Outpatient (CLI) | payer MEDICARE, SELFPAY ==
[2024-05-29 08:10] LABS: T3 Total 89 ng/dL (76-181)
== END 2024-05-28 15:24 | disposition home or self-care (01) ==
LOC: LAB 15:26
PROVIDERS: PCP Family Medicine; Visit Provider Internal Medicine
DX: E11.9 Type 2 diabetes mellitus without complications (principal); E05.90 Thyrotoxicosis, unspecified without thyrotoxic crisis or storm; E04.2 Nontoxic multinodular goiter
CPT/HCPCS: 36415; 84439; 84443; 84480

== ENCOUNTER 2024-06-12 15:01 | Outpatient (CLI) | payer MEDICARE, SELFPAY ==
--- NOTE | 2024-06-12 15:00 | XR_ITS ---
WS: [id number] SCREENING DEXA SCAN [employer] CLINICAL INFORMATION: Z78.0 - Asymptomatic menopausal state COMPARISON: None. FINDINGS: The L1-L4 bone mineral density measures 1.091 g/cm2. This corresponds to a T score score of -0.7 and Z score of 0.4. Left femoral neck bone mineral density measures 0.943 g/cm2. This corresponds to a T score of -0.5 an d Z score of 0.9. Right femoral neck bone mineral density measures 0.862 g/cm2. This corresponds to a T score -1.2of an d Z score of 0.3. Mean femoral neck bone mineral density measures 0.902 g/cm2. This corresponds to a T score of -0.8 an d Z score of 0.6. XR/XR DEXA axial skeleton* [id number] IMPRESSION: Normal bone mineralization lumbar spine. Osteopenia RIGHT femoral neck at the l ower end of the range. Normal bone mineralization LEFT femoral neck. Patient's FRAX calculated 10 year probability for major osteoporotic fracture i s 19.3% and osteoporotic hip fracture is 4.4%.
--- NOTE | 2024-06-12 15:08 | MM_ITS ---
WS: [id number] Bilateral screening 3D tomosynthesis digital mammogram, 06/12/2024 3:08 PM Clinical Data: SCREEN Comparison: 05/23/2023, 04/20/2022, 04/15/2021, 02/19/2020, 12/11/2018, 09/09/2017, 08/20/2016, 08/05/2015, 07/23/2015, 05/29/2014, 05/02/2013, 03/29/2012, 03/15/2011, 09/03/2009, 08/09/2008, 09/07/2007, 04/04/2007. Findings: No spiculated masses or clustered calcifications are seen. There are no secondary signs of carcinoma . There are lymph nodes in both axilla. There are vascular calcifications. MM/MM scr BI tomosynthesis [id number] Impression: Negative bilateral mammogram unchanged. Recommend annual screening mammograms. BIRADS: 1 - Negative. FOLLOW UP: 1 Year Follow-up DENSITY: There are scattered areas of fibroglandular density. The CAD checker stocker was used
== END 2024-06-12 15:02 | disposition home or self-care (01) ==
LOC: RAD 15:05
PROVIDERS: PCP Family Medicine; Visit Provider Nurse Practitioner Women's Health
DX: Z12.31 Encounter for screening mammogram for malignant neoplasm of breast (principal); R92.1 Mammographic calcification found on diagnostic imaging of breast; Z13.820 Encounter for screening for osteoporosis; M85.80 Other specified disorders of bone density and structure, unspecified site; Z78.0 Asymptomatic menopausal state
CPT/HCPCS: 77063; 77067; 77080

== ENCOUNTER → 2024-07-11 11:10 | Outpatient (BNVA) | payer MEDICARE, SELFPAY | PROVIDERS: PCP Family Medicine; Visit Provider Nurse Practitioner Family | DX: B35.3 Tinea pedis (principal); B35.1 Tinea unguium; L81.4 Other melanin hyperpigmentation; L82.0 Inflamed seborrheic keratosis; Z78.9 Other specified health status | CPT/HCPCS: 17110; 99214 ==

== ENCOUNTER → 2024-07-26 11:46 | Outpatient (BNVA) | payer MEDICARE, SELFPAY | PROVIDERS: PCP Family Medicine; Visit Provider Internal Medicine | DX: E04.2 Nontoxic multinodular goiter (principal); E05.90 Thyrotoxicosis, unspecified without thyrotoxic crisis or storm; R06.02 Shortness of breath | CPT/HCPCS: 99214 ==

== ENCOUNTER 2024-09-18 12:50 | Outpatient (CLI) | payer MEDICARE, SELFPAY ==
[2024-09-18 13:54] LABS: Free T4 Free Thyroxine 0.92 ng/dL (0.82-1.77); Thyroid Stimulating Hormone 2.48 uIU/mL (0.27-4.20)
== END 2024-09-18 12:51 | disposition home or self-care (01) ==
LOC: LAB 12:53
PROVIDERS: PCP Family Medicine; Visit Provider Internal Medicine
DX: E04.2 Nontoxic multinodular goiter (principal)
CPT/HCPCS: 84439; 84443

== ENCOUNTER → 2024-10-02 15:03 | Outpatient (BNVA) | payer MEDICARE, SELFPAY | PROVIDERS: PCP Family Medicine; Visit Provider Podiatrist Foot & Ankle Surgery | DX: M79.671 Pain in right foot (principal); M21.41 Flat foot [pes planus] (acquired), right foot; M21.42 Flat foot [pes planus] (acquired), left foot; M25.871 Other specified joint disorders, right ankle and foot; M76.821 Posterior tibial tendinitis, right leg | CPT/HCPCS: 73630; 99214 ==

== ENCOUNTER → 2024-10-16 08:54 | Outpatient (BNVA) | payer MEDICARE, SELFPAY | PROVIDERS: PCP Family Medicine; Visit Provider Nurse Practitioner Family | DX: L81.4 Other melanin hyperpigmentation (principal); L57.8 Other skin changes due to chronic exposure to nonionizing radiation; L82.0 Inflamed seborrheic keratosis; R20.8 Other disturbances of skin sensation; L91.8 Other hypertrophic disorders of the skin; L53.8 Other specified erythematous conditions; L29.89 Other pruritus; D48.5 Neoplasm of uncertain behavior of skin | CPT/HCPCS: 11102; 17110; 99213 ==

== ENCOUNTER → 2024-10-18 13:56 | Outpatient (BNVA) | payer MEDICARE, SELFPAY | PROVIDERS: PCP Family Medicine; Visit Provider Family Medicine | DX: E03.8 Other specified hypothyroidism (principal); I10 Essential (primary) hypertension; Z13.6 Encounter for screening for cardiovascular disorders; E55.9 Vitamin D deficiency, unspecified; D50.9 Iron deficiency anemia, unspecified; Z86.2 Personal history of diseases of the blood and blood-forming organs and certain disorders involving the immune mechanism; E66.9 Obesity, unspecified | CPT/HCPCS: 80053; 80061; 82306; 82728; 83550; 83721; 85025 ==

== ENCOUNTER → 2024-10-29 15:35 | Outpatient (BNVA) | payer MEDICARE, SELFPAY | PROVIDERS: PCP Family Medicine; Visit Provider Family Medicine | DX: I10 Essential (primary) hypertension (principal) | CPT/HCPCS: 80048 ==

== ENCOUNTER → 2024-11-27 10:09 | Outpatient (BNVA) | payer MEDICARE, SELFPAY | PROVIDERS: PCP Family Medicine; Visit Provider Family Medicine | DX: E03.8 Other specified hypothyroidism (principal) | CPT/HCPCS: 84439; 84443 ==

== ENCOUNTER 2025-01-09 15:52 | Outpatient (CLI) | payer MEDICARE, SELFPAY | END 2025-01-09 15:53 | disposition home or self-care (01) | LOC: SPT 15:53 | PROVIDERS: PCP Family Medicine; Visit Provider Podiatrist Foot & Ankle Surgery | DX: Z46.89 Encounter for fitting and adjustment of other specified devices (principal); M76.829 Posterior tibial tendinitis, unspecified leg | CPT/HCPCS: 17110; 99213; L3030 ==

== ENCOUNTER 2025-02-25 05:00 | Outpatient (RCR) | payer MEDICARE, SELFPAY | END 2025-03-26 23:59 | disposition home or self-care (01) | LOC: SPT 05:00 | PROVIDERS: PCP Family Medicine; Visit Provider Family Medicine | DX: R26.81 Unsteadiness on feet (principal) | CPT/HCPCS: 97110; 97161; 97530 ==

== ENCOUNTER → 2025-02-28 14:04 | Outpatient (BNVA) | payer MEDICARE, SELFPAY | PROVIDERS: PCP Family Medicine; Visit Provider Family Medicine | DX: E03.8 Other specified hypothyroidism (principal) | CPT/HCPCS: 84439; 84443 ==

== ENCOUNTER 2025-03-27 05:00 | Outpatient (RCR) | payer MEDICARE, SELFPAY | END 2025-04-22 10:21 | disposition home or self-care (01) | LOC: SPT 05:00 | PROVIDERS: PCP Family Medicine; Visit Provider Family Medicine | DX: R26.81 Unsteadiness on feet (principal) | CPT/HCPCS: 97110; 97530 ==

== ENCOUNTER → 2025-05-09 08:43 | Outpatient (BNVA) | payer MEDICARE, SELFPAY | PROVIDERS: PCP Family Medicine; Visit Provider Family Medicine | DX: E78.5 Hyperlipidemia, unspecified (principal) | CPT/HCPCS: 80053; 80061 ==

== ENCOUNTER 2025-05-15 14:27 | Outpatient (CLI) | payer MEDICARE, SELFPAY ==
--- NOTE | 2025-05-15 14:36 | XRR_ITS ---
PROCEDURE INFORMATION: Exam: XR Lumbosacral Spine Exam date and time: 05/15/2025 2:42 PM Age: 80 years old Clinical indication: Low back pain; Pain in lower left side of back and hip that started around 2 weeks ago due to strenuous activity; HX of polio; Additional info: Chronic low back pain TECHNIQUE: Imaging protocol: Radiologic exam of the lumbosacral spine. Views: 2 or 3 views. COMPARISON: No relevant prior studies available. FINDINGS: Bones/joints: The vertebral body heights are well-maintained. There is [id number] degenerative intervertebral disc space height loss throughout dominating at L4-L5 and L5-S1. There is prominent degenerative endplate sclerosis and marginal anterior osteophytosis. This is most significant at superior endplate of L2 and at the L4-L5 and L5-S1 intervertebral disc space. Moderate facet arthropathy is present throughout. There is 2 mm of retropulsion of L4 on L5. There is no scoliosis. Soft tissues: Unremarkable. XR/XR lumbar spine 2-3V* [id number] IMPRESSION: Moderate degenerative changes without radiographic evidence of acute process.
--- NOTE | 2025-05-15 14:36 | XRR_ITS ---
PROCEDURE INFORMATION: Exam: XR Left Knee Exam date and time: 05/15/2025 2:42 PM Age: 80 years old Clinical indication: Knee; Pain in lower left side of back and hip that started around 2 weeks ago due to strenuous activity; HX of polio; Additional info: Left medial knee pain TECHNIQUE: Imaging protocol: Radiologic exam of the left knee. Views: 3 views. COMPARISON: CR XR ankle LT min 3V* [id number] 10/12/2021 1:41 PM FINDINGS: Bones/joints: There is no fracture. There is mild medial compartment and the patellofemoral compartment. There is no joint effusion. Soft tissues: Normal. XR/XR knee LT 3V* [id number] IMPRESSION: Mild degenerative osteoarthritis
== END 2025-05-15 14:28 | disposition home or self-care (01) ==
LOC: RAD 14:31
PROVIDERS: PCP Family Medicine; Visit Provider Family Medicine
DX: M17.12 Unilateral primary osteoarthritis, left knee (principal); M47.817 Spondylosis without myelopathy or radiculopathy, lumbosacral region
CPT/HCPCS: 72100; 73562

== ENCOUNTER → 2025-05-21 08:45 | Outpatient (BNVA) | payer MEDICARE, SELFPAY | PROVIDERS: PCP Family Medicine; Visit Provider Orthopaedic Surgery | DX: M25.562 Pain in left knee (principal); M54.50 Low back pain, unspecified | CPT/HCPCS: 99204 ==

== ENCOUNTER 2025-06-06 14:22 | Outpatient (RCR) | payer MEDICARE, SELFPAY | END 2025-06-26 23:59 | disposition home or self-care (01) | LOC: SPT 14:22 | PROVIDERS: Visit Provider Orthopaedic Surgery | DX: M54.50 Low back pain, unspecified (principal); S76.312D Strain of muscle, fascia and tendon of the posterior muscle group at thigh level, left thigh, subsequent encounter; X58.XXXD Exposure to other specified factors, subsequent encounter | CPT/HCPCS: 97110; 97161 ==

== ENCOUNTER → 2025-06-16 13:08 | Outpatient (BNVA) | payer MEDICARE, SELFPAY | DX: R52 Pain, unspecified (principal) | CPT/HCPCS: 87400; 87426 ==